=== PATIENT | female | born 1935 | race Caucasian/White ===

== ENCOUNTER 2017-08-02 11:18 | Emergency (ER) | payer MEDICARE, MEDICAID ==
[~2017-08-02 11:18] MED LIST: CLON.5 PO; DOCU1CAP39 PO; FLON0.053 EACH NARE; HYDR-3533 PO; HYDR50 PO; LAMO100 PO; LITH150C7 PO; LITH300 PO; MACR100C PO; MOTI25CH PO; PATA0.2S EACH EYE; PENL8SOL TOP; RISP1 PO; RISP2TAB2 PO; TRAZ100 PO
--- NOTE | 2017-08-02 11:30 | PD ---
HPI Chief Complaint: Fall out of bed Time Seen by Provider: 11:26 Travel History International Travel<30 days: No Contact w/Intl Traveler<30days: No History of Present Illness HPI 82-year-old demented female patient presents to the ER today because she was found next to her bed, suspected that she fell out of bed, no obvious injuries identified. However, the patient is not a reliable historian. Modifying Factors: None Associated Signs & Symptoms: Fall from bed Risk Factors: Elderly PFSH Past Medical History Bipolar Disorder: Yes Anxiety: Yes Depression: Yes Diminished Hearing: No Neurologic: Yes (DEMENTIA) Immunizations Current: Yes Past Surgical History Appendectomy: Yes Hysterectomy: Yes Social History Alcohol Use: No Tobacco Use: No Substance Use: No Allergies-Medications (Allergen,Severity, Reaction): Coded Allergies: No Known Allergies (Unverified Allergy, Unknown, 08/02/17) Reported Meds & Prescriptions Reported Meds & Active Scripts Active Macrobid (Nitrofurantoin Macrocrystals) 100 Mg Cap 100 Mg PO BID 10 Days Reported [place] Carbonate 150 Mg Cap 450 Mg PO DAILY IN THE PM Trazodone Hcl (Trazodone HCl) 100 Mg Tab 100 Mg PO HS [place] Nail Lacquer (Ciclopirox) 8 % Beba 1 Applic TOP BID APPLY TO TOENAILS ON EACH GREAT TOE ON DAY AND EVENING SHIFT Meclizine Hcl (Meclizine HCl) 25 Mg Tab 25 Mg PO TID PRN Lamictal (Lamotrigine) 100 Mg Tab 100 Mg PO BID Klonopin (Clonazepam) 0.5 Mg Tab 0.5 Mg PO DAILY Vistaril 50 Mg Cap (Hydroxyzine Pamoate) 50 Mg Cap 50 Mg PO TID Colace 100 Mg Cap (Docusate Sodium) 100 Mg Cap 100 Mg PO TID PRN Lortab 5 mg/325 mg (Hydrocodone/Acetaminophen 5 mg/325 mg) 1 Tab 1 Tab PO Q4H PRN [place] Carbonate 300 Mg Tab 300 Mg PO DAILY Risperdal (Risperidone) 2 Mg Tab 2 Mg PO BID Risperdal (Risperidone) 1 Mg Tab 1 Mg PO DAILY IN THE PM [place] (Olopatadine HCl) 0.2 % Beba 1 Drop EACH EYE BID Flonase (Fluticasone Propionate) 0.05 % Naspr 1 Spr EACH NARE DAILY Review of Systems ROS Limitations: Altered Mental Status Physical Exam Narrative GENERAL: Elderly white female patient currently and no acute distress. Awake, alert, not oriented. SKIN: Focused skin assessment warm/dry. HEAD: Atraumatic. Normocephalic. EYES: Pupils equal and round. No scleral icterus. No injection or drainage. ENT: No nasal bleeding or discharge. Mucous membranes pink and moist. NECK: Trachea midline. No JVD. CARDIOVASCULAR: Regular rate and rhythm. No murmur appreciated. RESPIRATORY: No accessory muscle use. Clear to auscultation. Breath sounds equal bilaterally. GASTROINTESTINAL: Abdomen soft, non-tender, nondistended. Hepatic and splenic margins not palpable. Pelvis: Stable, nontender to palpation with no obvious deformities. MUSCULOSKELETAL: No obvious deformities. No clubbing. No cyanosis. No edema. EXTREMITIES: No clubbing, cyanosis, or edema. No joint tenderness, effusion, or edema noted. No calf tenderness. NEUROLOGICAL: Awake and alert. No obvious cranial nerve deficits. Motor grossly within normal limits. Normal speech. PSYCHIATRIC: Volatile mood and affect, intermittently agitated; insight and judgment poor. Data Data Last Documented VS Vital Signs Date Time Temp Pulse Resp B/P (MAP) Pulse Ox O2 Delivery O2 Flow Rate FiO2 08/02/17 11:44 98.3 102 17 185/82 (116) Orders Orders Ct Brain W/O Iv Contrast(Rout) (08/02/17 11:26) Ct Cerv Spine W/O Contrast (08/02/17 11:26) Pelvis, Ap Only (Routine) (08/02/17 11:26) Haloperidol Inj (Haldol Inj) (08/02/17 12:00) Ct Hip W/O Contrast (08/02/17 ) Morphine Inj (Morphine Inj) (08/02/17 12:30) Complete Blood Count With Diff (08/02/17 12:25) Basic Metabolic Panel (Bmp) (08/02/17 12:25) Morphine Inj (Morphine Inj) (08/02/17 12:45) Restraints Non-Violent DEBORAH.Q3H (08/02/17 12:42) Morphine Inj (Morphine Inj) (08/02/17 13:00) Haloperidol Inj (Haldol Inj) (08/02/17 13:00) Ed Discharge Order (08/02/17 15:27) Labs Laboratory Tests Test 08/02/17 12:48 White Blood Count 10.0 TH/MM3 Red Blood Count 4.40 MIL/MM3 Hemoglobin 13.2 GM/DL Hematocrit 40.5 % Mean Corpuscular Volume 92.1 FL Mean Corpuscular Hemoglobin 29.9 PG Mean Corpuscular Hemoglobin Concent 32.5 % Red Cell Distribution Width 15.8 % Platelet Count 270 TH/MM3 Mean Platelet Volume 9.5 FL Neutrophils (%) (Auto) 57.2 % Lymphocytes (%) (Auto) 31.7 % Monocytes (%) (Auto) 7.1 % Eosinophils (%) (Auto) 2.9 % Basophils (%) (Auto) 1.1 % Neutrophils # (Auto) 5.7 TH/MM3 Lymphocytes # (Auto) 3.2 TH/MM3 Monocytes # (Auto) 0.7 TH/MM3 Eosinophils # (Auto) 0.3 TH/MM3 Basophils # (Auto) 0.1 TH/MM3 CBC Comment DIFF FINAL Differential Comment Blood Urea Nitrogen 15 MG/DL Creatinine 0.92 MG/DL Random Glucose 65 MG/DL Calcium Level 9.6 MG/DL Sodium Level 143 MEQ/L Potassium Level 4.3 MEQ/L Chloride Level 108 MEQ/L Carbon Dioxide Level 23.6 MEQ/L Anion Gap 11 MEQ/L Estimat Glomerular Filtration Rate 59 ML/MIN [facility] Medical Decision Making Medical Screen Exam Complete: Yes Emergency Medical Condition: Yes Medical Record Reviewed: Yes Interpretation(s) Laboratory Tests Test 08/02/17 12:48 Random Glucose 65 MG/DL (74-106) Chloride Level 108 MEQ/L (98-107) Estimat Glomerular Filtration Rate 59 ML/MIN (>89) Last 24 hours Impressions Pelvis X-Ray 08/02/17 1126 Signed Impressions: Service Date/Time: Wednesday, August 02, 2017 12:16 - CONCLUSION: 1. There is a left femoral neck fracture with displacement. Femoral neck is not well-visualized given the orientation. However, given the ossification in the surrounding soft tissues, question whether this may be a chronic abnormality. Suggest correlating with the clinical history. 2. 12 mm density overlying the right kidney likely representing a renal stone. Anderson Butterfield MD Head CT 08/02/17 1126 Signed Impressions: Service Date/Time: Wednesday, August 02, 2017 13:07 - CONCLUSION: No acute intracranial findings. Eduar Schreiber MD Cervical Spine CT 08/02/17 1126 Signed Impressions: Service Date/Time: Wednesday, August 02, 2017 14:26 - CONCLUSION: No evidence of fracture. Multilevel degenerative findings. Eduar Schreiber MD Lower Extremity CT 08/02/17 0000 Signed Impressions: Service Date/Time: Wednesday, August 02, 2017 13:22 - CONCLUSION: 1. Displaced left femoral neck fracture. 2. Heterotopic ossification about the left hip. 3. Mild osteoarthritic findings of left hip. Eduar Schreibre MD Differential Diagnosis Rule out intracranial injuries versus fractures Narrative Course Pelvic x-ray shows a left hip fracture and CAT scans were done which shows a displaced left hip fracture which appears to be subacute since there is already some bone growth. Patient's son arrives and states that they know about the hip fracture, had decided not to treat it due to patient's age, I have had this conversation with patient's son who confirms this. CT scan of the brain and neck did not show any signs of acute processes. At this point, my plan would be to release her back to facility. Return for new issues as needed. Diagnosis Primary Impression: H/O fracture of left hip Additional Impression: Fall Disposition: 03 DISCHARGE TO SNF Condition: Stable Verónica Almodovar MD August 02, 2017 11:30
[2017-08-02 11:44] VITALS: BP 185/82; PULSE 102; RESP 17; TEMP 98.3
[2017-08-02] MEDS ORDERED: HALOPERIDOL LACTATE 5 MG/ML AMP IM ONE ×2 (12:00→13:00)
[2017-08-02] MEDS ORDERED: MORPHINE SULFATE 2 MG/ML SYRINGE IV PUSH ONE (12:30)
[2017-08-02] MEDS ORDERED: MORPHINE SULFATE 4 MG/ML INJ IV PUSH ONE ×2 (12:45→13:00)
--- NOTE | 2017-08-02 12:50 | RADRPT ---
EXAM DATE/TIME: 08/02/2017 12:16 [facility] COMPARISON: No previous studies available for comparison. INDICATIONS : Pain. MEDICAL HISTORY : None. SURGICAL HISTORY : None. ENCOUNTER: Initial ACUITY: PAIN SCORE: 10/10 LOCATION: Left hip. FINDINGS: Portable single frontal view of the pelvis demonstrates an abnormal left proximal femur representing a femoral neck fracture with displacement. There is surrounding ossification in the adjacent soft tis sues. There is superior migration of the femur. Right hip joint demonstrates no abnormality. Pelvic b ones demonstrate no acute abnormality. No soft tissue abnormality is seen. Density overlying the righ t kidney measuring 12 mm may represent a renal stone. CONCLUSION: 1. There is a left femoral neck fracture with displacement. Femoral neck is not well-visualized given the orientation. However, given the ossification in the surrounding soft tissues, question whether t his may be a chronic abnormality. Suggest correlating with the clinical history. 2. 12 mm density overlying the right kidney likely representing a renal stone. Anderson Butterfield MD on August 02, 2017 at 12:45 Board Certified Radiologist. This report was verified electronically.
[2017-08-02 13:12] LABS: AUTOMATED NEUTROPHIL # 5.7 TH/MM3 (1.8-7.7); BASOPHIL # 0.1 TH/MM3 (0-0.2); BASOPHIL % 1.1 % (0.0-2.0); EOSINOPHIL # 0.3 TH/MM3 (0-0.4); EOSINOPHIL % 2.9 % (0.0-4.0); HEMATOCRIT 40.5 % (35.0-46.0); HEMOGLOBIN 13.2 GM/DL (11.6-15.3); LYMPH % 31.7 % (9.0-44.0); LYMPHOCYTE # 3.2 TH/MM3 (1.0-4.8); MEAN CELL VOLUME 92.1 FL (80.0-100.0); MEAN CORPUSCULAR HEMOGLOBIN 29.9 PG (27.0-34.0); MEAN CORPUSCULAR HGB CONC 32.5 % (32.0-36.0); MEAN PLATELET VOLUME 9.5 FL (7.0-11.0); MONO % 7.1 % (0.0-8.0); MONOCYTE # 0.7 TH/MM3 (0-0.9); NEUT % 57.2 % (16.0-70.0); PLATELET COUNT 270 TH/MM3 (150-450); RED CELL DISTRIBUTION WIDTH 15.8 % (11.6-17.2)
[2017-08-02 13:40] LABS: BICARBONATE 23.6 MEQ/L (21.0-32.0); CALCIUM 9.6 MG/DL (8.5-10.1); CREATININE 0.92 MG/DL (0.50-1.00)
--- NOTE | 2017-08-02 13:56 | RADRPT ---
EXAM DATE/TIME: 08/02/2017 13:22 [facility] COMPARISON: No previous studies available for comparison. INDICATIONS : Possible fall from bed. RADIATION DOSE: 22.29 CTDIvol (mGy) MEDICAL HISTORY : Dementia. SURGICAL HISTORY : Appendectomy. Hysterectomy. ENCOUNTER: Initial ACUITY: 1 day PAIN SCALE: Non-responsive LOCATION: Left hip TECHNIQUE: Volumetric scanning of the hip was performed. Using automated exposure control and adjustment of the mA and/or kV according to patient size, radiation dose was kept as low as reasonably achievable to o btain optimal diagnostic quality images. DICOM format image data is available electronically for rev iew and comparison. FINDINGS: Subcapital left femoral neck fracture with approximately 3 cm lateral displacement and proximal migra tion of the distal fragment. Surrounding heterotopic ossification noted. Large left of joint effusion . Small left hip osteophytes and mild left hip joint narrowing. CONCLUSION: 1. Displaced left femoral neck fracture. 2. Heterotopic ossification about the left hip. 3. Mild osteoarthritic findings of left hip. Eduar Schreiber MD on August 02, 2017 at 13:49 Board Certified Radiologist. This report was verified electronically.
--- NOTE | 2017-08-02 14:52 | RADRPT ---
EXAM DATE/TIME: 08/02/2017 13:07 [facility] COMPARISON: No previous studies available for comparison. INDICATIONS : Possible fall from bed. RADIATION DOSE: 56.35 CTDIvol (mGy) MEDICAL HISTORY : Dementia. SURGICAL HISTORY : Appendectomy. Hysterectomy. ENCOUNTER: Initial ACUITY: 1 day PAIN SCALE: Non-responsive LOCATION: cranial TECHNIQUE: Multiple contiguous axial images were obtained of the head. Using automated exposure control and adj ustment of the mA and/or kV according to patient size, radiation dose was kept as low as reasonably a chievable to obtain optimal diagnostic quality images. DICOM format image data is available electro nically for review and comparison. FINDINGS: CEREBRUM: Diffuse prominence of the ventricles, sulci, and cisterns indicating diffuse atrophy. No evidence of midline shift, mass lesion, hemorrhage or acute infarction. No extra-axial fluid collections are see n. POSTERIOR FOSSA: The cerebellum and brainstem are intact. The 4th ventricle is midline. The cerebellopontine angle i s unremarkable. EXTRACRANIAL: The visualized portion of the orbits is intact. SKULL: The calvaria is intact. No evidence of skull fracture. CONCLUSION: No acute intracranial findings. Eduar Schreiber MD on August 02, 2017 at 14:48 Board Certified Radiologist. This report was verified electronically.
--- NOTE | 2017-08-02 15:01 | RADRPT ---
EXAM DATE/TIME: 08/02/2017 14:26 [facility] COMPARISON: No previous studies available for comparison. INDICATIONS : Possible fall from bed. RADIATION DOSE: 16.55 CTDIvol (mGy) MEDICAL HISTORY : Dementia. SURGICAL HISTORY : Appendectomy. Hysterectomy. ENCOUNTER: Initial ACUITY: 1 day PAIN SCALE: Non-responsive LOCATION: neck TECHNIQUE: Volumetric scanning of the cervical spine was performed. Multiplanar reconstructions in the sagittal, coronal and oblique axial planes were performed. Using automated exposure control and adjustment o f the mA and/or kV according to patient size, radiation dose was kept as low as reasonably achievable to obtain optimal diagnostic quality images. DICOM format image data is available electronically f or review and comparison. FINDINGS: VERTEBRAE: Mild cervical kyphosis. No evidence of fracture. 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 ALIGNMENT: No evidence of subluxation. C2-C3: Mild bilateral facet arthrosis. No evidence of focal disc protrusion. Central canal normal diameter. Neural foraminal diameters within normal limits. C3-C4: No evidence of focal disc protrusion. Central canal normal diameter. Neural foraminal diameters withi n normal limits. C4-C5: Broad-based disc osteophyte complex. Bilateral facet arthrosis. Mild bilateral neural foraminal narro wing. Central canal diameter within normal limits. C5-C6: Bilateral facet arthrosis. Mild right neuroforaminal narrowing. Central canal diameter within normal limits. C6-C7: No evidence of focal disc protrusion. Central canal normal diameter. Neural foraminal diameters withi n normal limits. C7-T1: No evidence of focal disc protrusion. Central canal normal diameter. Neural foraminal diameters withi n normal limits. CONCLUSION: No evidence of fracture. Multilevel degenerative findings. Eduar Schreiber MD on August 02, 2017 at 14:56 Board Certified Radiologist. This report was verified electronically.
== END 2017-08-02 18:17 ==
LOC: NEPC 11:18
DX: S72.002A Fracture of unspecified part of neck of left femur, initial encounter for closed fracture (principal); W06.XXXA Fall from bed, initial encounter; F31.9 Bipolar disorder, unspecified; F41.9 Anxiety disorder, unspecified; F03.90 Unspecified dementia, unspecified severity, without behavioral disturbance, psychotic disturbance, mood disturbance, and anxiety
CPT/HCPCS: 70450; 72125; 72170; 73700; 80048; 85025; 96372; 96374; 96375; 99285; J1630; J2270